=== PATIENT | female | born 1965 | race Caucasian/White ===

== ENCOUNTER 2017-10-20 16:05 | Inpatient (IN) | payer OTHER ==
[2017-10-20 17:03] LABS: ADD MAN DIFF? NO
[2017-10-20 17:04] LABS: WHITE BLOOD COUNT 4.6 10^3/ul (4.8-10.8)
[2017-10-20 17:04] LABS: BASOPHILS % 0.4 % (0.0-2.0); EOSINOPHILS # 0.1 10^3/ul (0.0-0.5); EOSINOPHILS % 2.8 % (0.0-7.0); LYMPHOCYTES # 1.2 10^3/ul (0.8-2.9); LYMPHOCYTES % 25.8 % (15.0-51.0); MEAN CORPUSCULAR HEMOGLOBIN 29.3 pg (29.0-33.0); MEAN CORPUSCULAR HGB CONC 34.3 g/dl (32.0-37.0); MEAN CORPUSCULAR VOLUME 85.6 fl (82.0-101.0); MEAN PLATELET VOLUME 10.6 fl (7.4-10.4); MONOCYTE # 0.5 10^3/ul (0.3-0.9); MONOCYTES % 10.8 % (0.0-11.0); NEUTROPHIL # 2.8 10^3/ul (1.6-7.5); PLATELET COUNT 183 10^3/UL (140-415); RED BLOOD COUNT 4.09 10^6/ul (4.20-5.40); RED CELL DISTRIBUTION WIDTH 12.7 % (11.5-14.5)
[2017-10-20 17:11] LABS: ALANINE AMINOTRANSFERASE 33 IU/L (13-69); ALBUMIN 4.2 g/dl (3.3-4.9); ALBUMIN/GLOBULIN RATIO 1.27; ALKALINE PHOSPHATASE 113 IU/L (42-121); ANION GAP 19 (8-16); ASPARTATE AMINO TRANSFERASE 25 IU/L (15-46); BILIRUBIN,INDIRECT 0.4 mg/dl (0-1.1); BILIRUBIN,TOTAL 0.4 mg/dl (0.2-1.3); BLOOD UREA NITROGEN 17 mg/dl (7-20); CALCIUM 9.6 mg/dl (8.4-10.2); CARBON DIOXIDE 25 mmol/L (21-31); CHLORIDE 107 mmol/L (97-110); CREATININE 0.59 mg/dl (0.44-1.00); GLUCOSE 128 mg/dl (70-220); LIPASE 101 U/L (23-300); POTASSIUM 4.2 mmol/L (3.5-5.1); SODIUM 147 mmol/L (135-144); TOTAL PROTEIN 7.5 g/dl (6.1-8.1)
[2017-10-20 17:22] LABS: TROPONIN-I < 0.010 ng/ml (0.000-0.120)
[2017-10-20] MEDS: SOD CHLORIDE 0.9% 500 ML IV (18:12)
[2017-10-20] MEDS ORDERED: HYDROCODONE/APAP (5/325) TAB PO (18:30)
[2017-10-20] MEDS ORDERED: ACETAMINOPHEN 325 MG TAB PO (18:30)
[2017-10-20] MEDS ORDERED: DOCUSATE SODIUM 100 MG CAP PO (18:30)
[2017-10-20] MEDS ORDERED: NA PHOSPHATE/BIPHOS 133 ML ENEMA PR (18:30)
[2017-10-20] MEDS ORDERED: morphine 2 MG INJ IV (18:30)
[2017-10-20] MEDS ORDERED: NACL 0.9% 3 ML SYG IV (18:30)
[2017-10-20] MEDS ORDERED: LORAZEPAM 2 MG INJ IV (18:30)
[2017-10-20] MEDS ORDERED: NITROGLYCERIN (SL) 0.4 MG TAB SL (18:30)
[2017-10-20] MEDS ORDERED: ALBUTEROL/IPRATROPIUM (NEB) 3 ML AMP HHN (18:30)
[2017-10-20] MEDS ORDERED: ONDANSETRON 4 MG INJ IV (18:30)
[2017-10-20] MEDS ORDERED: MAGNESIUM HYDROXIDE 30ML CUP PO (18:30)
[2017-10-20] MEDS ORDERED: GLUCAGON 1 MG INJ IM (19:00)
[2017-10-20] MEDS ORDERED: DEXTROSE 50% 50 ML SYRINGE IV ×2 (19:00)
[2017-10-20] MEDS ORDERED: GLUCOSE GEL 15 GRAM TUBE PO ×2 (19:00)
[2017-10-20] MEDS ORDERED: GLUCOSE GEL 15 GRAM TUBE BUCCAL (19:00)
[2017-10-20 19:38] LABS: FREE T4 (FREE THYROXINE) 0.88 ng/dl (0.64-1.79)
[2017-10-20] MEDS: SOD CHLORIDE 0.45% 1,000 ML IV (20:07)
[2017-10-20] MEDS: hydrALAzine 20 MG INJ IV (20:23)
[2017-10-20] MEDS: ASPIRIN 81 MG TAB PO (20:30)
[2017-10-20] MEDS: INSULIN ASPART [NOVOLOG] 3 ML PEN SC (21:00)
[2017-10-20] MEDS: LEVETIRACETAM 500 MG TAB PO (21:31)
[2017-10-20] MEDS: HEPARIN 5,000 UNIT/0.5 ML VIAL SC (22:06)
[2017-10-20] MEDS: INSULIN GLARGINE [LANtus] 3 ML PEN SC (22:08)
[2017-10-20 22:55] LABS: CREATINE KINASE < 20 IU/L (23-200)
[2017-10-20 23:03] LABS: CK-MB 0.25 ng/ml (0.0-2.4)
[2017-10-20 23:07] LABS: TROPONIN-I < 0.010 ng/ml (0.000-0.120)
[2017-10-21 05:44] LABS: ADD MAN DIFF? NO
[2017-10-21 05:48] LABS: WHITE BLOOD COUNT 3.6 10^3/ul (4.8-10.8)
[2017-10-21 05:48] LABS: BASOPHILS % 0.6 % (0.0-2.0); EOSINOPHILS # 0.1 10^3/ul (0.0-0.5); EOSINOPHILS % 2.8 % (0.0-7.0); HEMATOCRIT 33.1 % (37.0-47.0); LYMPHOCYTES % 27.1 % (15.0-51.0); MEAN CORPUSCULAR HEMOGLOBIN 28.1 pg (29.0-33.0); MEAN CORPUSCULAR HGB CONC 33.2 g/dl (32.0-37.0); MEAN CORPUSCULAR VOLUME 84.7 fl (82.0-101.0); MEAN PLATELET VOLUME 10.1 fl (7.4-10.4); MONOCYTE # 0.4 10^3/ul (0.3-0.9); MONOCYTES % 10.6 % (0.0-11.0); NEUTROPHIL # 2.1 10^3/ul (1.6-7.5); NEUTROPHILS % 58.6 % (39.0-77.0); PLATELET COUNT 172 10^3/UL (140-415); RED BLOOD COUNT 3.91 10^6/ul (4.20-5.40); RED CELL DISTRIBUTION WIDTH 12.8 % (11.5-14.5)
[2017-10-21 06:12] LABS: CHOLESTEROL 153 mg/dl (100-200)
[2017-10-21 06:12] LABS: CHOL/HDL RATIO 5.1 RATIO; HDL CHOLESTEROL 30 mg/dl (37-92); LDL CHOLESTEROL,CALCULATED 85 mg/dl; TRIGLYCERIDES 190 mg/dl (0-149)
[2017-10-21 06:13] LABS: CREATINE KINASE < 20 IU/L (23-200)
[2017-10-21 06:16] LABS: ANION GAP 7 (8-16); BLOOD UREA NITROGEN 12 mg/dl (7-20); CALCIUM 9.2 mg/dl (8.4-10.2); CARBON DIOXIDE 32 mmol/L (21-31); CHLORIDE 111 mmol/L (97-110); CREATININE 0.52 mg/dl (0.44-1.00); GLUCOSE 102 mg/dl (70-220); MAGNESIUM 1.6 mg/dl (1.7-2.5); POTASSIUM 3.8 mmol/L (3.5-5.1); SODIUM 146 mmol/L (135-144)
[2017-10-21 06:22] LABS: CK-MB 0.32 ng/ml (0.0-2.4)
[2017-10-21 06:24] LABS: TROPONIN-I < 0.010 ng/ml (0.000-0.120)
[2017-10-21] MEDS: PANTOPRAZOLE (EC) 40 MG TAB PO (07:43)
[2017-10-21] MEDS: LEVETIRACETAM 500 MG TAB PO (08:57)
[2017-10-21] MEDS: ASPIRIN (EC) 325 MG TAB PO (08:57)
[2017-10-21] MEDS: CLOPIDOGREL 75 MG TAB PO (08:57)
[2017-10-21] MEDS: HEPARIN 5,000 UNIT/0.5 ML VIAL SC (08:58)
[2017-10-21 09:20] LABS: ADD UMIC YES; UR ASCORBIC ACID NEGATIVE (NEGATIVE); UR BACTERIA FEW /HPF (NONE SEEN); UR BILIRUBIN (Dip) NEGATIVE (NEGATIVE); UR BLOOD (Dip) NEGATIVE (NEGATIVE); UR CLARITY CLEAR (CLEAR); UR COLOR STRAW (YELLOW); UR GLUCOSE (Dip) NEGATIVE (NEGATIVE); UR KETONES (Dip) NEGATIVE (NEGATIVE); UR LEUKOCYTE ESTERASE (Dip) 2+ Leu/ul (NEGATIVE); UR NITRITE (Dip) NEGATIVE (NEGATIVE); UR RBC 1 /HPF (0-5); UR SPECIFIC GRAVITY (Dip) 1.006 (1.003-1.030); UR SQUAMOUS EPITHELIAL CELL FEW /HPF (FEW); UR TOTAL PROTEIN (Dip) NEGATIVE (NEGATIVE); UR UROBILINOGEN (Dip) NEGATIVE (NEGATIVE); UR WBC 14 /HPF (0-5)
[2017-10-21] MEDS: SOD CHLORIDE 0.45% 1,000 ML IV (09:45)
[2017-10-21] MEDS: MAGNESIUM SULFATE 1 GM/D5W 100 ML IVPB (11:51)
== END 2017-10-21 11:39 | disposition home or self-care (01) | DRG 313 ==
LOC: TEL 18:34 → E/R 10-21 13:02
DX: R07.9 Chest pain, unspecified (principal); I69.954 Hemiplegia and hemiparesis following unspecified cerebrovascular disease affecting left non-dominant side; I10 Essential (primary) hypertension; E11.9 Type 2 diabetes mellitus without complications; Z79.4 Long term (current) use of insulin; Z79.02 Long term (current) use of antithrombotics/antiplatelets
CPT/HCPCS: 36415; 71045; 80048; 80053; 80061; 81001; 82550; 82553; 82962; 83036; 83690; 83735; 84100; 84439; 84443; 84484; 85025; 93005; 93306; 96372; 96374; 96375; 99285-25

== ENCOUNTER 2018-05-07 12:29 | Emergency (ER) | payer OTHER ==
[2018-05-07 13:32] LABS: ADD MAN DIFF? NO
[2018-05-07 13:34] LABS: BASOPHILS % 0.5 % (0.0-2.0); EOSINOPHILS # 0.1 10^3/ul (0.0-0.5); EOSINOPHILS % 2.1 % (0.0-7.0); HEMATOCRIT 38.4 % (37.0-47.0); LYMPHOCYTES # 1.2 10^3/ul (0.8-2.9); LYMPHOCYTES % 20.9 % (15.0-51.0); MEAN CORPUSCULAR HEMOGLOBIN 28.4 pg (29.0-33.0); MEAN CORPUSCULAR HGB CONC 33.9 g/dl (32.0-37.0); MEAN PLATELET VOLUME 9.2 fl (7.4-10.4); MONOCYTE # 0.3 10^3/ul (0.3-0.9); MONOCYTES % 6.1 % (0.0-11.0); NEUTROPHIL # 3.9 10^3/ul (1.6-7.5); PLATELET COUNT 211 10^3/UL (140-415); RED BLOOD COUNT 4.57 10^6/ul (4.20-5.40); RED CELL DISTRIBUTION WIDTH 12.2 % (11.5-14.5)
[2018-05-07 13:34] LABS: WHITE BLOOD COUNT 5.6 10^3/ul (4.8-10.8)
[2018-05-07 13:53] LABS: INR 0.92; PROTIME 12.4 Sec (11.9-14.9)
[2018-05-07 13:54] LABS: PARTIAL THROMBOPLASTIN TIME 32.6 Sec (23.0-35.0)
[2018-05-07 13:55] LABS: ANION GAP 11 (5-13); BLOOD UREA NITROGEN 16 mg/dl (7-20); CALCIUM 9.7 mg/dl (8.4-10.2); CARBON DIOXIDE 27 mmol/L (21-31); CHLORIDE 102 mmol/L (97-110); CREATININE 0.51 mg/dl (0.44-1.00); Estimated GFR > 60 mL/min (>60); GLUCOSE 165 mg/dl (70-220); POTASSIUM 4.4 mmol/L (3.5-5.1); SODIUM 140 mmol/L (135-144)
[2018-05-07 14:07] LABS: TROPONIN-I < 0.012 ng/ml (0.000-0.120)
[2018-05-07 14:31] LABS: ADD UMIC YES; UR ASCORBIC ACID NEGATIVE (NEGATIVE); UR BACTERIA FEW /HPF (NONE SEEN); UR BILIRUBIN (Dip) NEGATIVE (NEGATIVE); UR BLOOD (Dip) 2+ mg/dL (NEGATIVE); UR CLARITY CLOUDY (CLEAR); UR COLOR YELLOW (YELLOW); UR GLUCOSE (Dip) NEGATIVE (NEGATIVE); UR KETONES (Dip) NEGATIVE (NEGATIVE); UR LEUKOCYTE ESTERASE (Dip) 3+ Leu/ul (NEGATIVE); UR NITRITE (Dip) NEGATIVE (NEGATIVE); UR RBC 41 /HPF (0-5); UR SPECIFIC GRAVITY (Dip) 1.008 (1.003-1.030); UR SQUAMOUS EPITHELIAL CELL FEW /HPF (FEW); UR TOTAL PROTEIN (Dip) NEGATIVE (NEGATIVE); UR UROBILINOGEN (Dip) NEGATIVE (NEGATIVE); UR WBC > 182 /HPF (0-5)
[2018-05-07] MEDS: CEFTRIAXONE 1 GM/50 ML (PMX) 50 ML IVPB (15:55)
== END 2018-05-07 18:11 | disposition home or self-care (01) ==
LOC: E/R 12:29
DX: R53.1 Weakness (principal); E11.9 Type 2 diabetes mellitus without complications; I10 Essential (primary) hypertension; N30.00 Acute cystitis without hematuria; R94.02 Abnormal brain scan; Z86.73 Personal history of transient ischemic attack (TIA), and cerebral infarction without residual deficits; Z79.4 Long term (current) use of insulin; Z79.01 Long term (current) use of anticoagulants
CPT/HCPCS: 36415; 70450; 71045; 80048; 81001; 84484; 85025; 85610; 85730; 93005; 96374; 99285-25

== ENCOUNTER 2018-05-21 18:05 | Emergency (ER) | payer OTHER ==
[2018-05-21] MEDS ORDERED: morphine 4 MG/ML VIAL IV (21:41)
[2018-05-21 22:02] LABS: ADD MAN DIFF? NO
[2018-05-21 22:03] LABS: WHITE BLOOD COUNT 4.2 10^3/ul (4.8-10.8)
[2018-05-21 22:03] LABS: BASOPHILS % 0.5 % (0.0-2.0); EOSINOPHILS # 0.1 10^3/ul (0.0-0.5); EOSINOPHILS % 2.6 % (0.0-7.0); HEMOGLOBIN 13.3 g/dl (12.0-16.0); LYMPHOCYTES # 1.4 10^3/ul (0.8-2.9); LYMPHOCYTES % 33.7 % (15.0-51.0); MEAN CORPUSCULAR HEMOGLOBIN 28.5 pg (29.0-33.0); MEAN CORPUSCULAR HGB CONC 34.1 g/dl (32.0-37.0); MEAN CORPUSCULAR VOLUME 83.7 fl (82.0-101.0); MEAN PLATELET VOLUME 9.3 fl (7.4-10.4); MONOCYTE # 0.3 10^3/ul (0.3-0.9); MONOCYTES % 7.8 % (0.0-11.0); NEUTROPHIL # 2.4 10^3/ul (1.6-7.5); NEUTROPHILS % 55.4 % (39.0-77.0); PLATELET COUNT 216 10^3/UL (140-415); RED BLOOD COUNT 4.66 10^6/ul (4.20-5.40); RED CELL DISTRIBUTION WIDTH 12.4 % (11.5-14.5)
[2018-05-21] MEDS: KETOROLAC 30 MG INJ IV (22:03)
[2018-05-21] MEDS: ONDANSETRON 4 MG INJ IV (22:03)
[2018-05-21 22:21] LABS: ANION GAP 13 (5-13); BLOOD UREA NITROGEN 21 mg/dl (7-20); CARBON DIOXIDE 27 mmol/L (21-31); CHLORIDE 102 mmol/L (97-110); CREATININE 0.62 mg/dl (0.44-1.00); Estimated GFR > 60 mL/min (>60); GLUCOSE 130 mg/dl (70-220); POTASSIUM 4.6 mmol/L (3.5-5.1); SODIUM 142 mmol/L (135-144)
[2018-05-21 22:33] LABS: TROPONIN-I < 0.012 ng/ml (0.000-0.120)
== END 2018-05-21 23:49 | disposition home or self-care (01) ==
LOC: E/R 18:05
DX: R06.02 Shortness of breath (principal); R07.9 Chest pain, unspecified; I10 Essential (primary) hypertension; E11.9 Type 2 diabetes mellitus without complications; Z79.01 Long term (current) use of anticoagulants; Z79.4 Long term (current) use of insulin; Z86.73 Personal history of transient ischemic attack (TIA), and cerebral infarction without residual deficits
CPT/HCPCS: 36415; 71045; 80048; 84484; 85025; 93005; 96374; 96375; 99285-25

== ENCOUNTER 2018-09-29 00:32 | Inpatient (IN) | payer OTHER ==
[2018-09-29] MEDS: HYDROCODONE/APAP (5/325) TAB PO ×2 (01:11→16:02)
[2018-09-29 03:20] LABS: ADD MAN DIFF? NO
[2018-09-29 03:22] LABS: WHITE BLOOD COUNT 13.4 10^3/ul (4.8-10.8)
[2018-09-29 03:22] LABS: BASOPHILS % 0.3 % (0.0-2.0); EOSINOPHILS % 0.2 % (0.0-7.0); HEMATOCRIT 36.1 % (37.0-47.0); HEMOGLOBIN 12.1 g/dl (12.0-16.0); LYMPHOCYTES # 0.7 10^3/ul (0.8-2.9); LYMPHOCYTES % 5.2 % (15.0-51.0); MEAN CORPUSCULAR HEMOGLOBIN 28.5 pg (29.0-33.0); MEAN CORPUSCULAR HGB CONC 33.5 g/dl (32.0-37.0); MEAN CORPUSCULAR VOLUME 85.1 fl (82.0-101.0); MEAN PLATELET VOLUME 10.5 fl (7.4-10.4); MONOCYTE # 0.6 10^3/ul (0.3-0.9); MONOCYTES % 4.3 % (0.0-11.0); NEUTROPHILS % 89.4 % (39.0-77.0); PLATELET COUNT 180 10^3/UL (140-415); RED BLOOD COUNT 4.24 10^6/ul (4.20-5.40); RED CELL DISTRIBUTION WIDTH 12.6 % (11.5-14.5)
[2018-09-29 03:42] LABS: ALANINE AMINOTRANSFERASE 120 IU/L (13-69); ALBUMIN 4.3 g/dl (3.3-4.9); ALKALINE PHOSPHATASE 96 IU/L (42-121); ANION GAP 11 (5-13); ASPARTATE AMINO TRANSFERASE 85 IU/L (15-46); BILIRUBIN,INDIRECT 0.5 mg/dl (0-1.1); BILIRUBIN,TOTAL 0.5 mg/dl (0.2-1.3); BLOOD UREA NITROGEN 21 mg/dl (7-20); CALCIUM 9.7 mg/dl (8.4-10.2); CARBON DIOXIDE 25 mmol/L (21-31); CHLORIDE 107 mmol/L (97-110); CREATININE 0.62 mg/dl (0.44-1.00); Estimated GFR > 60 mL/min (>60); GLUCOSE 202 mg/dl (70-220); LIPASE 75 U/L (23-300); PARTIAL THROMBOPLASTIN TIME 30.6 Sec (23.0-35.0); POTASSIUM 4.5 mmol/L (3.5-5.1); PROTIME 12.3 Sec (11.9-14.9); SODIUM 143 mmol/L (135-144); TOTAL PROTEIN 7.6 g/dl (6.1-8.1)
[2018-09-29] MEDS: ONDANSETRON 4 MG INJ IV (03:45)
[2018-09-29] MEDS: morphine 4 MG/ML VIAL IV (03:45)
[2018-09-29] MEDS ORDERED: GLUCAGON 1 MG INJ IM (05:30)
[2018-09-29] MEDS ORDERED: ACETAMINOPHEN 325 MG TAB PO (05:30)
[2018-09-29] MEDS ORDERED: DEXTROSE 50% 50 ML SYRINGE IV ×2 (05:30)
[2018-09-29] MEDS ORDERED: GLUCOSE GEL 15 GRAM TUBE BUCCAL (05:30)
[2018-09-29] MEDS ORDERED: GLUCOSE GEL 15 GRAM TUBE PO ×2 (05:30)
[2018-09-29] MEDS: SOD CHLORIDE 0.45% 1,000 ML IV (06:10)
[2018-09-29] MEDS: PANTOPRAZOLE (EC) 40 MG TAB PO (06:54)
[2018-09-29] MEDS: AMLODIPINE 5 MG TAB PO ×2 (09:22→22:06)
[2018-09-29] MEDS: INSULIN ASPART [NOVOLOG] 3 ML PEN SC ×4 (09:30→21:00)
[2018-09-29 13:58] LABS: ADD UMIC NO; UR ASCORBIC ACID NEGATIVE (NEGATIVE); UR BILIRUBIN (Dip) NEGATIVE (NEGATIVE); UR BLOOD (Dip) NEGATIVE (NEGATIVE); UR CLARITY CLEAR (CLEAR); UR COLOR STRAW (YELLOW); UR GLUCOSE (Dip) NEGATIVE (NEGATIVE); UR KETONES (Dip) NEGATIVE (NEGATIVE); UR LEUKOCYTE ESTERASE (Dip) NEGATIVE Leu/ul (NEGATIVE); UR NITRITE (Dip) NEGATIVE (NEGATIVE); UR SPECIFIC GRAVITY (Dip) 1.015 (1.003-1.030); UR TOTAL PROTEIN (Dip) NEGATIVE (NEGATIVE); UR UROBILINOGEN (Dip) NEGATIVE (NEGATIVE)
[2018-09-29] MEDS ORDERED: FENTAnyl 50 MCG/ML VIAL (18:26)
[2018-09-29] MEDS ORDERED: ONDANSETRON 4 MG INJ IV (18:30)
[2018-09-29] MEDS ORDERED: DIPHENHYDRAMINE 50 MG INJ IV (18:30)
[2018-09-29] MEDS ORDERED: ALBUTEROL 0.083% (NEB) 2.5 MG/3 ML AMP HHN (18:30)
[2018-09-29] MEDS ORDERED: METOCLOPRAMIDE 10 MG INJ IV (18:30)
[2018-09-29] MEDS ORDERED: FENTAnyl 50 MCG/ML VIAL IV ×2 (18:30)
[2018-09-29] MEDS ORDERED: HYDROmorphONE 1 MG/5 ML IV SYRINGE IV ×2 (18:30)
[2018-09-29] MEDS ORDERED: INSULIN GLARGINE [LANtus] 3 ML PEN SC (21:00)
[2018-09-29] MEDS: INSULIN GLARGINE [LANTus] (100 UNITS/ML) SYG SC (21:58)
[2018-09-29] MEDS: morphine 2 MG INJ IV (22:01)
[2018-09-30 00:01] LABS: TROPONIN-I < 0.012 ng/ml (0.000-0.120)
[2018-09-30] MEDS ORDERED: ACCU-CHEK XX ×2 (02:00)
[2018-09-30] MEDS: DEXTROSE 5%-0.45% NACL 1,000 ML IV ×2 (02:21→14:51)
[2018-09-30] MEDS: INSULIN ASPART [NOVOLOG] 3 ML PEN SC ×4 (02:41→17:37)
[2018-09-30] MEDS: morphine 2 MG INJ IV ×3 (02:47→14:43)
[2018-09-30 05:56] LABS: ADD MAN DIFF? NO
[2018-09-30 06:00] LABS: BASOPHILS % 0.2 % (0.0-2.0); EOSINOPHILS # 0.1 10^3/ul (0.0-0.5); EOSINOPHILS % 1.2 % (0.0-7.0); HEMATOCRIT 34.6 % (37.0-47.0); HEMOGLOBIN 11.6 g/dl (12.0-16.0); LYMPHOCYTES # 0.8 10^3/ul (0.8-2.9); LYMPHOCYTES % 12.2 % (15.0-51.0); MEAN CORPUSCULAR HEMOGLOBIN 28.2 pg (29.0-33.0); MEAN CORPUSCULAR HGB CONC 33.5 g/dl (32.0-37.0); MEAN PLATELET VOLUME 10.4 fl (7.4-10.4); MONOCYTE # 0.5 10^3/ul (0.3-0.9); MONOCYTES % 7.1 % (0.0-11.0); NEUTROPHIL # 5.2 10^3/ul (1.6-7.5); NEUTROPHILS % 78.8 % (39.0-77.0); PLATELET COUNT 124 10^3/UL (140-415); RED BLOOD COUNT 4.12 10^6/ul (4.20-5.40); RED CELL DISTRIBUTION WIDTH 12.4 % (11.5-14.5)
[2018-09-30 06:00] LABS: WHITE BLOOD COUNT 6.6 10^3/ul (4.8-10.8)
[2018-09-30 06:33] LABS: TROPONIN-I < 0.012 ng/ml (0.000-0.120)
[2018-09-30 06:34] LABS: ANION GAP 6 (5-13); BLOOD UREA NITROGEN 14 mg/dl (7-20); CALCIUM 9.4 mg/dl (8.4-10.2); CARBON DIOXIDE 27 mmol/L (21-31); CHLORIDE 105 mmol/L (97-110); CREATININE 0.54 mg/dl (0.44-1.00); Estimated GFR > 60 mL/min (>60); GLUCOSE 180 mg/dl (70-220); POTASSIUM 4.1 mmol/L (3.5-5.1); SODIUM 138 mmol/L (135-144)
[2018-09-30] MEDS: PANTOPRAZOLE (EC) 40 MG TAB PO (06:38)
[2018-09-30] MEDS ORDERED: CEFAZOLIN 1 GM INJ (07:00)
[2018-09-30 07:22] LABS: HEMOGLOBIN A1C 6.4 % (0-5.9)
[2018-09-30] MEDS: AMLODIPINE 5 MG TAB PO ×2 (09:00→21:00)
[2018-09-30] MEDS ORDERED: ETOMIDATE 20 MG INJ (19:28)
[2018-09-30] MEDS ORDERED: ROCURONIUM 50 MG INJ (19:28)
[2018-09-30] MEDS ORDERED: HYDROmorphONE 2 MG/ML SYG (19:29)
[2018-09-30] MEDS ORDERED: LABETALOL HCL 20MG INJ IV (20:00)
[2018-09-30] MEDS ORDERED: MEPERIDINE 25 MG INJ IV (20:00)
[2018-09-30] MEDS ORDERED: HYDROmorphONE 1 MG/5 ML IV SYRINGE IV (20:00)
[2018-09-30] MEDS: POLYMYXIN/BACITRACIN 1L IRRIG (20:05)
[2018-09-30] MEDS ORDERED: DEXAMETHASONE 4 MG/ML 5 ML INJ (20:12)
[2018-09-30] MEDS ORDERED: ONDANSETRON 4 MG INJ (20:12)
[2018-09-30] MEDS ORDERED: SUGAMMADEX SODIUM 200 MG/2 ML VIAL IV (21:59)
[2018-09-30] MEDS: LACTATED RINGER'S 1,000 ML IV (22:19)
[2018-09-30] MEDS: HYDROmorphONE 1 MG/5 ML IV SYRINGE IV ×3 (22:22→22:34)
[2018-09-30] MEDS: ONDANSETRON 4 MG INJ IV (22:27)
[2018-09-30] MEDS: DOCUSATE SODIUM 100 MG CAP PO (22:30)
[2018-09-30] MEDS ORDERED: NALOXONE (0.4 MG/ML) INJ IV (22:30)
[2018-09-30] MEDS ORDERED: NA PHOSPHATE/BIPHOS 133 ML ENEMA PR (22:30)
[2018-09-30] MEDS ORDERED: CEFAZOLIN 2 GM/50 ML (PMX) 50 ML IVPB (22:30)
[2018-09-30] MEDS ORDERED: DIPHENHYDRAMINE 50 MG INJ IV (22:30)
[2018-09-30] MEDS: hydrALAzine 20 MG INJ IV (22:42)
[2018-10-01] MEDS: INSULIN ASPART [NOVOLOG] 3 ML PEN SC ×4 (00:25→17:55)
[2018-10-01] MEDS: INSULIN GLARGINE [LANTus] (100 UNITS/ML) SYG SC ×2 (00:36→20:35)
[2018-10-01] MEDS: CEFAZOLIN 2 GM/50 ML (PMX) 50 ML IVPB ×3 (04:18→20:16)
[2018-10-01] MEDS: ACETAMINOPHEN 500 MG TAB PO ×3 (05:41→20:23)
[2018-10-01] MEDS ORDERED: PANTOPRAZOLE (EC) 40 MG TAB PO (06:00)
[2018-10-01 08:13] LABS: ADD MAN DIFF? NO
[2018-10-01 08:15] LABS: ABNORMAL IP MESSAGE 1; BASOPHILS % 0.1 % (0.0-2.0); HEMATOCRIT 33.7 % (37.0-47.0); HEMOGLOBIN 11.4 g/dl (12.0-16.0); LYMPHOCYTES # 0.4 10^3/ul (0.8-2.9); MEAN CORPUSCULAR HEMOGLOBIN 28.2 pg (29.0-33.0); MEAN CORPUSCULAR HGB CONC 33.8 g/dl (32.0-37.0); MEAN CORPUSCULAR VOLUME 83.4 fl (82.0-101.0); MEAN PLATELET VOLUME 10.5 fl (7.4-10.4); MONOCYTE # 0.4 10^3/ul (0.3-0.9); NEUTROPHIL # 7.5 10^3/ul (1.6-7.5); NEUTROPHILS % 89.2 % (39.0-77.0); PLATELET COUNT 133 10^3/UL (140-415); RED BLOOD COUNT 4.04 10^6/ul (4.20-5.40); RED CELL DISTRIBUTION WIDTH 12.4 % (11.5-14.5)
[2018-10-01 08:15] LABS: WHITE BLOOD COUNT 8.4 10^3/ul (4.8-10.8)
[2018-10-01 08:21] LABS: POSITIVE DIFF @See below
[2018-10-01 08:36] LABS: INR 0.97
[2018-10-01 08:44] LABS: ANION GAP 9 (5-13); BLOOD UREA NITROGEN 12 mg/dl (7-20); CALCIUM 9.2 mg/dl (8.4-10.2); CARBON DIOXIDE 27 mmol/L (21-31); CHLORIDE 104 mmol/L (97-110); CREATININE 0.53 mg/dl (0.44-1.00); Estimated GFR > 60 mL/min (>60); GLUCOSE 157 mg/dl (70-220); POTASSIUM 4.6 mmol/L (3.5-5.1); SODIUM 140 mmol/L (135-144)
[2018-10-01 08:45] LABS: CHOL/HDL RATIO 4.1 RATIO; HDL CHOLESTEROL 48 mg/dl (37-92); LDL CHOLESTEROL,CALCULATED 128 mg/dl; TRIGLYCERIDES 119 mg/dl (0-149)
[2018-10-01 08:45] LABS: CHOLESTEROL 200 mg/dl (100-200)
[2018-10-01] MEDS: DOCUSATE SODIUM 100 MG CAP PO ×2 (08:53→20:17)
[2018-10-01] MEDS: PANTOPRAZOLE (EC) 40 MG TAB PO (08:54)
[2018-10-01] MEDS: AMLODIPINE 5 MG TAB PO ×2 (08:56→20:18)
[2018-10-01] MEDS: BACLOFEN 10 MG TAB PO ×2 (12:23→20:17)
[2018-10-01] MEDS: morphine 2 MG INJ IV (15:16)
[2018-10-01] MEDS: oxyCODONE 5 MG TAB PO (16:02)
[2018-10-01] MEDS: HYDROmorphONE 1 MG/ML SYG IV (17:45)
[2018-10-01] MEDS: GABAPENTIN 300 MG CAP PO (20:17)
[2018-10-02] MEDS: oxyCODONE 5 MG TAB PO ×4 (01:42→23:42)
[2018-10-02] MEDS: HYDROmorphONE 1 MG/ML SYG IV (04:21)
[2018-10-02] MEDS: PANTOPRAZOLE (EC) 40 MG TAB PO (05:52)
[2018-10-02] MEDS: ACETAMINOPHEN 500 MG TAB PO ×3 (05:52→21:14)
[2018-10-02] MEDS: INSULIN ASPART [NOVOLOG] 3 ML PEN SC ×5 (05:57→23:55)
[2018-10-02 06:24] LABS: ADD MAN DIFF? NO
[2018-10-02 06:29] LABS: WHITE BLOOD COUNT 6.3 10^3/ul (4.8-10.8)
[2018-10-02 06:29] LABS: BASOPHILS % 0.3 % (0.0-2.0); EOSINOPHILS # 0.1 10^3/ul (0.0-0.5); EOSINOPHILS % 1.3 % (0.0-7.0); HEMOGLOBIN 10.7 g/dl (12.0-16.0); LYMPHOCYTES # 0.7 10^3/ul (0.8-2.9); LYMPHOCYTES % 11.7 % (15.0-51.0); MEAN CORPUSCULAR HEMOGLOBIN 28.3 pg (29.0-33.0); MEAN CORPUSCULAR HGB CONC 33.4 g/dl (32.0-37.0); MEAN CORPUSCULAR VOLUME 84.7 fl (82.0-101.0); MEAN PLATELET VOLUME 10.1 fl (7.4-10.4); MONOCYTE # 0.5 10^3/ul (0.3-0.9); MONOCYTES % 8.4 % (0.0-11.0); NEUTROPHIL # 4.9 10^3/ul (1.6-7.5); NEUTROPHILS % 77.8 % (39.0-77.0); PLATELET COUNT 122 10^3/UL (140-415); RED BLOOD COUNT 3.78 10^6/ul (4.20-5.40); RED CELL DISTRIBUTION WIDTH 12.5 % (11.5-14.5)
[2018-10-02 06:45] LABS: INR 0.96; PROTIME 12.9 Sec (11.9-14.9)
[2018-10-02 06:53] LABS: ANION GAP 9 (5-13); BLOOD UREA NITROGEN 17 mg/dl (7-20); CALCIUM 8.8 mg/dl (8.4-10.2); CARBON DIOXIDE 30 mmol/L (21-31); CHLORIDE 100 mmol/L (97-110); Estimated GFR > 60 mL/min (>60); GLUCOSE 167 mg/dl (70-220); POTASSIUM 4.2 mmol/L (3.5-5.1); SODIUM 139 mmol/L (135-144)
[2018-10-02] MEDS: DOCUSATE SODIUM 100 MG CAP PO ×2 (08:30→21:22)
[2018-10-02] MEDS: BACLOFEN 10 MG TAB PO ×3 (08:31→21:13)
[2018-10-02] MEDS: AMLODIPINE 5 MG TAB PO ×2 (08:32→21:14)
[2018-10-02] MEDS: ENOXAPARIN 40 MG/0.4 ML SYG SC (08:35)
[2018-10-02] MEDS: ONDANSETRON 4 MG INJ IV (18:18)
[2018-10-02] MEDS: GABAPENTIN 300 MG CAP PO (21:13)
[2018-10-02] MEDS: INSULIN GLARGINE [LANTus] (100 UNITS/ML) SYG SC (21:21)
[2018-10-03] MEDS: HYDROmorphONE 1 MG/ML SYG IV ×2 (03:35→10:15)
[2018-10-03] MEDS: ACETAMINOPHEN 500 MG TAB PO ×3 (05:27→21:14)
[2018-10-03] MEDS: INSULIN ASPART [NOVOLOG] 3 ML PEN SC ×3 (05:36→18:09)
[2018-10-03 06:08] LABS: ADD MAN DIFF? NO
[2018-10-03 06:15] LABS: WHITE BLOOD COUNT 5.3 10^3/ul (4.8-10.8)
[2018-10-03 06:15] LABS: BASOPHILS % 0.6 % (0.0-2.0); EOSINOPHILS # 0.2 10^3/ul (0.0-0.5); EOSINOPHILS % 4.4 % (0.0-7.0); HEMOGLOBIN 9.7 g/dl (12.0-16.0); LYMPHOCYTES # 0.9 10^3/ul (0.8-2.9); MEAN CORPUSCULAR HEMOGLOBIN 28.6 pg (29.0-33.0); MEAN CORPUSCULAR HGB CONC 33.4 g/dl (32.0-37.0); MEAN CORPUSCULAR VOLUME 85.5 fl (82.0-101.0); MEAN PLATELET VOLUME 10.1 fl (7.4-10.4); MONOCYTE # 0.7 10^3/ul (0.3-0.9); MONOCYTES % 12.5 % (0.0-11.0); NEUTROPHIL # 3.4 10^3/ul (1.6-7.5); NEUTROPHILS % 65.1 % (39.0-77.0); PLATELET COUNT 143 10^3/UL (140-415); RED BLOOD COUNT 3.39 10^6/ul (4.20-5.40); RED CELL DISTRIBUTION WIDTH 12.5 % (11.5-14.5)
[2018-10-03 06:32] LABS: INR 0.99; PROTIME 13.2 Sec (11.9-14.9)
[2018-10-03 06:55] LABS: ANION GAP 7 (5-13); BLOOD UREA NITROGEN 20 mg/dl (7-20); CALCIUM 9.1 mg/dl (8.4-10.2); CARBON DIOXIDE 29 mmol/L (21-31); CHLORIDE 103 mmol/L (97-110); CREATININE 0.69 mg/dl (0.44-1.00); Estimated GFR > 60 mL/min (>60); GLUCOSE 145 mg/dl (70-220); POTASSIUM 4.1 mmol/L (3.5-5.1); SODIUM 139 mmol/L (135-144)
[2018-10-03] MEDS: PANTOPRAZOLE (EC) 40 MG TAB PO (08:45)
[2018-10-03] MEDS: AMLODIPINE 5 MG TAB PO ×2 (08:46→21:10)
[2018-10-03] MEDS: BACLOFEN 10 MG TAB PO ×3 (08:46→21:09)
[2018-10-03] MEDS: DOCUSATE SODIUM 100 MG CAP PO ×2 (08:46→21:09)
[2018-10-03] MEDS: SENNA/DOCUSATE NA (8.6MG/50MG) TAB PO (08:47)
[2018-10-03] MEDS: MAGNESIUM HYDROXIDE 30ML CUP PO (08:47)
[2018-10-03] MEDS: ENOXAPARIN 40 MG/0.4 ML SYG SC (08:49)
[2018-10-03] MEDS: oxyCODONE 5 MG TAB PO ×2 (09:14→21:07)
[2018-10-03] MEDS ORDERED: METOPROLOL 5 MG INJ IV (12:30)
[2018-10-03] MEDS: ONDANSETRON 4 MG INJ IV ×2 (15:23→21:08)
[2018-10-03] MEDS: BISACODYL 10 MG SUPP PR (15:24)
[2018-10-03] MEDS: GABAPENTIN 300 MG CAP PO (21:10)
[2018-10-03] MEDS: METOPROLOL 25 MG TAB PO (21:13)
[2018-10-03] MEDS: INSULIN GLARGINE [LANTus] (100 UNITS/ML) SYG SC (21:56)
[2018-10-04] MEDS: INSULIN ASPART [NOVOLOG] 3 ML PEN SC ×5 (00:11→21:42)
[2018-10-04] MEDS: MAGNESIUM HYDROXIDE 30ML CUP PO (00:31)
[2018-10-04] MEDS: oxyCODONE 5 MG TAB PO ×4 (04:49→20:38)
[2018-10-04] MEDS: ONDANSETRON 4 MG INJ IV ×3 (04:49→20:31)
[2018-10-04] MEDS: ACETAMINOPHEN 500 MG TAB PO ×3 (06:23→21:35)
[2018-10-04] MEDS: PANTOPRAZOLE (EC) 40 MG TAB PO (06:24)
[2018-10-04 06:31] LABS: ADD MAN DIFF? NO
[2018-10-04 06:39] LABS: WHITE BLOOD COUNT 4.2 10^3/ul (4.8-10.8)
[2018-10-04 06:39] LABS: BASOPHILS % 0.7 % (0.0-2.0); EOSINOPHILS # 0.2 10^3/ul (0.0-0.5); EOSINOPHILS % 5.7 % (0.0-7.0); HEMATOCRIT 28.7 % (37.0-47.0); HEMOGLOBIN 9.4 g/dl (12.0-16.0); LYMPHOCYTES # 0.9 10^3/ul (0.8-2.9); LYMPHOCYTES % 21.7 % (15.0-51.0); MEAN CORPUSCULAR HEMOGLOBIN 28.1 pg (29.0-33.0); MEAN CORPUSCULAR HGB CONC 32.8 g/dl (32.0-37.0); MEAN CORPUSCULAR VOLUME 85.9 fl (82.0-101.0); MEAN PLATELET VOLUME 9.9 fl (7.4-10.4); MONOCYTE # 0.5 10^3/ul (0.3-0.9); MONOCYTES % 12.1 % (0.0-11.0); NEUTROPHIL # 2.5 10^3/ul (1.6-7.5); NEUTROPHILS % 59.3 % (39.0-77.0); PLATELET COUNT 158 10^3/UL (140-415); RED BLOOD COUNT 3.34 10^6/ul (4.20-5.40); RED CELL DISTRIBUTION WIDTH 12.5 % (11.5-14.5)
[2018-10-04 06:50] LABS: INR 0.91; PROTIME 12.4 Sec (11.9-14.9)
[2018-10-04 07:10] LABS: ANION GAP 7 (5-13); BLOOD UREA NITROGEN 19 mg/dl (7-20); CALCIUM 9.1 mg/dl (8.4-10.2); CARBON DIOXIDE 31 mmol/L (21-31); CHLORIDE 100 mmol/L (97-110); CREATININE 0.72 mg/dl (0.44-1.00); Estimated GFR > 60 mL/min (>60); GLUCOSE 179 mg/dl (70-220); POTASSIUM 4.4 mmol/L (3.5-5.1); SODIUM 138 mmol/L (135-144)
[2018-10-04] MEDS: METOPROLOL 25 MG TAB PO ×2 (08:13→20:39)
[2018-10-04] MEDS: BACLOFEN 10 MG TAB PO ×3 (08:13→20:40)
[2018-10-04] MEDS: AMLODIPINE 5 MG TAB PO ×2 (08:14→20:39)
[2018-10-04] MEDS: ENOXAPARIN 40 MG/0.4 ML SYG SC (09:14)
[2018-10-04] MEDS: SENNA/DOCUSATE NA (8.6MG/50MG) TAB PO (14:17)
[2018-10-04] MEDS: NA PHOSPHATE/BIPHOS 133 ML ENEMA PR (16:21)
[2018-10-04] MEDS: MAGNESIUM CITRATE 300 ML BTL PO (18:13)
[2018-10-04] MEDS: GABAPENTIN 300 MG CAP PO (20:38)
[2018-10-04] MEDS: INSULIN GLARGINE [LANTus] (100 UNITS/ML) SYG SC (21:42)
[2018-10-05] MEDS: METOCLOPRAMIDE 10 MG INJ IV ×3 (00:26→18:49)
[2018-10-05] MEDS: SENNA/DOCUSATE NA (8.6MG/50MG) TAB PO ×2 (00:26→20:34)
[2018-10-05] MEDS: oxyCODONE 5 MG TAB PO ×3 (00:26→12:00)
[2018-10-05] MEDS: ACCU-CHEK XX (01:22)
[2018-10-05] MEDS: ACETAMINOPHEN 500 MG TAB PO ×3 (06:24→21:58)
[2018-10-05] MEDS: PANTOPRAZOLE (EC) 40 MG TAB PO (06:24)
[2018-10-05 07:19] LABS: ADD MAN DIFF? NO
[2018-10-05 07:23] LABS: BASOPHILS % 0.7 % (0.0-2.0); EOSINOPHILS # 0.2 10^3/ul (0.0-0.5); EOSINOPHILS % 5.4 % (0.0-7.0); HEMATOCRIT 29.1 % (37.0-47.0); HEMOGLOBIN 9.5 g/dl (12.0-16.0); LYMPHOCYTES # 1.3 10^3/ul (0.8-2.9); LYMPHOCYTES % 29.5 % (15.0-51.0); MEAN CORPUSCULAR HGB CONC 32.6 g/dl (32.0-37.0); MEAN CORPUSCULAR VOLUME 85.8 fl (82.0-101.0); MEAN PLATELET VOLUME 9.3 fl (7.4-10.4); MONOCYTE # 0.5 10^3/ul (0.3-0.9); MONOCYTES % 11.3 % (0.0-11.0); NEUTROPHIL # 2.3 10^3/ul (1.6-7.5); NEUTROPHILS % 52.2 % (39.0-77.0); PLATELET COUNT 187 10^3/UL (140-415); RED BLOOD COUNT 3.39 10^6/ul (4.20-5.40); RED CELL DISTRIBUTION WIDTH 12.6 % (11.5-14.5)
[2018-10-05 07:23] LABS: WHITE BLOOD COUNT 4.4 10^3/ul (4.8-10.8)
[2018-10-05 07:41] LABS: INR 0.93; PROTIME 12.6 Sec (11.9-14.9)
[2018-10-05 07:50] LABS: ANION GAP 6 (5-13); BLOOD UREA NITROGEN 14 mg/dl (7-20); CARBON DIOXIDE 31 mmol/L (21-31); CHLORIDE 102 mmol/L (97-110); Estimated GFR > 60 mL/min (>60); GLUCOSE 191 mg/dl (70-220); POTASSIUM 4.2 mmol/L (3.5-5.1); SODIUM 139 mmol/L (135-144)
[2018-10-05] MEDS: BACLOFEN 10 MG TAB PO ×3 (09:04→20:36)
[2018-10-05] MEDS: AMLODIPINE 5 MG TAB PO ×2 (09:04→20:35)
[2018-10-05] MEDS: METOPROLOL 25 MG TAB PO ×2 (09:05→20:35)
[2018-10-05] MEDS: INSULIN ASPART [NOVOLOG] 3 ML PEN SC ×4 (09:32→20:52)
[2018-10-05] MEDS: ENOXAPARIN 40 MG/0.4 ML SYG SC (09:33)
[2018-10-05] MEDS: METHYLNALTREXONE 12 MG/0.6 ML VIAL SC (18:48)
[2018-10-05] MEDS: MAGNESIUM CITRATE 300 ML BTL PO (18:48)
[2018-10-05] MEDS: GABAPENTIN 300 MG CAP PO (20:34)
[2018-10-05] MEDS: INSULIN GLARGINE [LANTus] (100 UNITS/ML) SYG SC (20:51)
[2018-10-06] MEDS: ACCU-CHEK XX (02:00)
[2018-10-06] MEDS: ACETAMINOPHEN 500 MG TAB PO ×3 (05:37→21:47)
[2018-10-06] MEDS: METOCLOPRAMIDE 10 MG INJ IV ×5 (05:38→23:49)
[2018-10-06 06:44] LABS: ADD MAN DIFF? NO
[2018-10-06 06:46] LABS: WHITE BLOOD COUNT 4.9 10^3/ul (4.8-10.8)
[2018-10-06 06:46] LABS: BASOPHILS % 0.6 % (0.0-2.0); EOSINOPHILS # 0.2 10^3/ul (0.0-0.5); EOSINOPHILS % 3.7 % (0.0-7.0); HEMATOCRIT 30.8 % (37.0-47.0); HEMOGLOBIN 10.1 g/dl (12.0-16.0); LYMPHOCYTES # 1.2 10^3/ul (0.8-2.9); LYMPHOCYTES % 24.5 % (15.0-51.0); MEAN CORPUSCULAR HEMOGLOBIN 28.3 pg (29.0-33.0); MEAN CORPUSCULAR HGB CONC 32.8 g/dl (32.0-37.0); MEAN CORPUSCULAR VOLUME 86.3 fl (82.0-101.0); MONOCYTE # 0.6 10^3/ul (0.3-0.9); MONOCYTES % 11.6 % (0.0-11.0); NEUTROPHIL # 2.8 10^3/ul (1.6-7.5); NUCLEATED RED BLOOD CELLS% 0.4 /100WBC (0.0-0.0); PLATELET COUNT 241 10^3/UL (140-415); RED BLOOD COUNT 3.57 10^6/ul (4.20-5.40); RED CELL DISTRIBUTION WIDTH 12.5 % (11.5-14.5)
[2018-10-06 07:05] LABS: INR 0.89; PROTIME 12.1 Sec (11.9-14.9); PT RATIO 0.9
[2018-10-06 07:15] LABS: ALANINE AMINOTRANSFERASE 120 IU/L (13-69); ALBUMIN 3.6 g/dl (3.3-4.9); ALKALINE PHOSPHATASE 262 IU/L (42-121); ANION GAP 6 (5-13); ASPARTATE AMINO TRANSFERASE 145 IU/L (15-46); BILIRUBIN,INDIRECT 0.8 mg/dl (0-1.1); BILIRUBIN,TOTAL 0.8 mg/dl (0.2-1.3); BLOOD UREA NITROGEN 15 mg/dl (7-20); CALCIUM 9.3 mg/dl (8.4-10.2); CARBON DIOXIDE 33 mmol/L (21-31); CHLORIDE 100 mmol/L (97-110); CREATININE 0.59 mg/dl (0.44-1.00); Estimated GFR > 60 mL/min (>60); GLUCOSE 149 mg/dl (70-220); POTASSIUM 4.3 mmol/L (3.5-5.1); SODIUM 139 mmol/L (135-144); TOTAL PROTEIN 6.6 g/dl (6.1-8.1)
[2018-10-06] MEDS: INSULIN ASPART [NOVOLOG] 3 ML PEN SC ×4 (07:25→22:05)
[2018-10-06] MEDS: PANTOPRAZOLE (EC) 40 MG TAB PO (08:19)
[2018-10-06] MEDS: METOPROLOL 25 MG TAB PO ×2 (08:21→21:47)
[2018-10-06] MEDS: BACLOFEN 10 MG TAB PO ×3 (08:21→21:50)
[2018-10-06] MEDS: AMLODIPINE 5 MG TAB PO ×2 (08:22→21:46)
[2018-10-06] MEDS: SENNA/DOCUSATE NA (8.6MG/50MG) TAB PO ×2 (08:22→21:46)
[2018-10-06] MEDS: ENOXAPARIN 40 MG/0.4 ML SYG SC (08:33)
[2018-10-06] MEDS: oxyCODONE 5 MG TAB PO (10:53)
[2018-10-06] MEDS: ONDANSETRON 4 MG INJ IV (14:18)
[2018-10-06] MEDS: CLOPIDOGREL 75 MG TAB PO (14:40)
[2018-10-06] MEDS: GABAPENTIN 300 MG CAP PO (21:46)
[2018-10-06] MEDS: INSULIN GLARGINE [LANTus] (100 UNITS/ML) SYG SC (21:50)
[2018-10-07] MEDS: oxyCODONE 5 MG TAB PO ×2 (00:47→17:11)
[2018-10-07] MEDS: ACCU-CHEK XX (01:53)
[2018-10-07 05:34] LABS: ADD MAN DIFF? NO
[2018-10-07 05:38] LABS: WHITE BLOOD COUNT 4.6 10^3/ul (4.8-10.8)
[2018-10-07 05:38] LABS: BASOPHILS % 0.4 % (0.0-2.0); EOSINOPHILS # 0.3 10^3/ul (0.0-0.5); EOSINOPHILS % 5.8 % (0.0-7.0); HEMATOCRIT 30.1 % (37.0-47.0); HEMOGLOBIN 9.6 g/dl (12.0-16.0); LYMPHOCYTES # 1.4 10^3/ul (0.8-2.9); LYMPHOCYTES % 29.2 % (15.0-51.0); MEAN CORPUSCULAR HEMOGLOBIN 27.7 pg (29.0-33.0); MEAN CORPUSCULAR HGB CONC 31.9 g/dl (32.0-37.0); MEAN CORPUSCULAR VOLUME 86.7 fl (82.0-101.0); MONOCYTE # 0.5 10^3/ul (0.3-0.9); MONOCYTES % 10.4 % (0.0-11.0); NEUTROPHIL # 2.3 10^3/ul (1.6-7.5); NEUTROPHILS % 50.3 % (39.0-77.0); NUCLEATED RED BLOOD CELLS% 0.6 /100WBC (0.0-0.0); PLATELET COUNT 242 10^3/UL (140-415); RED BLOOD COUNT 3.47 10^6/ul (4.20-5.40); RED CELL DISTRIBUTION WIDTH 12.7 % (11.5-14.5)
[2018-10-07 05:58] LABS: INR 0.85; PROTIME 11.7 Sec (11.9-14.9); PT RATIO 0.9
[2018-10-07 06:04] LABS: ALANINE AMINOTRANSFERASE 155 IU/L (13-69); ALBUMIN 3.3 g/dl (3.3-4.9); ALBUMIN/GLOBULIN RATIO 1.06; ALKALINE PHOSPHATASE 230 IU/L (42-121); ANION GAP 6 (5-13); ASPARTATE AMINO TRANSFERASE 144 IU/L (15-46); BILIRUBIN,INDIRECT 0.7 mg/dl (0-1.1); BILIRUBIN,TOTAL 0.7 mg/dl (0.2-1.3); BLOOD UREA NITROGEN 13 mg/dl (7-20); CALCIUM 8.9 mg/dl (8.4-10.2); CARBON DIOXIDE 31 mmol/L (21-31); CHLORIDE 103 mmol/L (97-110); CREATININE 0.56 mg/dl (0.44-1.00); Estimated GFR > 60 mL/min (>60); GLUCOSE 115 mg/dl (70-220); POTASSIUM 4.3 mmol/L (3.5-5.1); SODIUM 140 mmol/L (135-144); TOTAL PROTEIN 6.4 g/dl (6.1-8.1)
[2018-10-07] MEDS: ACETAMINOPHEN 500 MG TAB PO ×3 (06:20→21:13)
[2018-10-07] MEDS: PANTOPRAZOLE (EC) 40 MG TAB PO (06:21)
[2018-10-07] MEDS: METOCLOPRAMIDE 10 MG INJ IV ×3 (06:21→17:10)
[2018-10-07] MEDS: METOPROLOL 25 MG TAB PO ×2 (08:32→21:15)
[2018-10-07] MEDS: CLOPIDOGREL 75 MG TAB PO (08:32)
[2018-10-07] MEDS: BACLOFEN 10 MG TAB PO ×3 (08:33→21:14)
[2018-10-07] MEDS: AMLODIPINE 5 MG TAB PO ×2 (08:34→21:13)
[2018-10-07] MEDS: SENNA/DOCUSATE NA (8.6MG/50MG) TAB PO ×2 (08:34→21:13)
[2018-10-07] MEDS: INSULIN ASPART [NOVOLOG] 3 ML PEN SC ×4 (08:37→21:21)
[2018-10-07] MEDS: ENOXAPARIN 40 MG/0.4 ML SYG SC (08:38)
[2018-10-07] MEDS: METHYLNALTREXONE 12 MG/0.6 ML VIAL SC (17:11)
[2018-10-07] MEDS: GABAPENTIN 300 MG CAP PO (21:14)
[2018-10-07] MEDS: INSULIN GLARGINE [LANTus] (100 UNITS/ML) SYG SC (21:19)
[2018-10-08] MEDS: METOCLOPRAMIDE 10 MG INJ IV ×5 (00:47→23:55)
[2018-10-08] MEDS: ACCU-CHEK XX (02:00)
[2018-10-08] MEDS: PANTOPRAZOLE (EC) 40 MG TAB PO (05:58)
[2018-10-08] MEDS: ACETAMINOPHEN 500 MG TAB PO ×3 (05:59→22:46)
[2018-10-08] MEDS: INSULIN ASPART [NOVOLOG] 3 ML PEN SC ×4 (07:00→21:00)
[2018-10-08 07:06] LABS: ALANINE AMINOTRANSFERASE 237 IU/L (13-69); ALBUMIN 3.4 g/dl (3.3-4.9); ALBUMIN/GLOBULIN RATIO 1.17; ALKALINE PHOSPHATASE 239 IU/L (42-121); ANION GAP 6 (5-13); ASPARTATE AMINO TRANSFERASE 209 IU/L (15-46); BILIRUBIN,INDIRECT 0.7 mg/dl (0-1.1); BILIRUBIN,TOTAL 0.7 mg/dl (0.2-1.3); BLOOD UREA NITROGEN 12 mg/dl (7-20); CARBON DIOXIDE 29 mmol/L (21-31); CHLORIDE 102 mmol/L (97-110); CREATININE 0.66 mg/dl (0.44-1.00); Estimated GFR > 60 mL/min (>60); GLUCOSE 139 mg/dl (70-220); POTASSIUM 4.4 mmol/L (3.5-5.1); SODIUM 137 mmol/L (135-144); TOTAL PROTEIN 6.3 g/dl (6.1-8.1)
[2018-10-08] MEDS: BACLOFEN 10 MG TAB PO ×3 (10:17→21:01)
[2018-10-08] MEDS: SENNA/DOCUSATE NA (8.6MG/50MG) TAB PO ×2 (10:17→21:02)
[2018-10-08] MEDS: METOPROLOL 25 MG TAB PO ×2 (10:17→22:46)
[2018-10-08] MEDS: CLOPIDOGREL 75 MG TAB PO (10:18)
[2018-10-08] MEDS: AMLODIPINE 5 MG TAB PO ×2 (10:18→21:03)
[2018-10-08] MEDS: ENOXAPARIN 40 MG/0.4 ML SYG SC (10:20)
[2018-10-08] MEDS: GABAPENTIN 300 MG CAP PO (21:01)
[2018-10-08] MEDS: INSULIN GLARGINE [LANTus] (100 UNITS/ML) SYG SC (21:06)
[2018-10-09] MEDS: ACCU-CHEK XX (02:00)
[2018-10-09 05:20] LABS: ADD MAN DIFF? NO
[2018-10-09 05:39] LABS: WHITE BLOOD COUNT 5.1 10^3/ul (4.8-10.8)
[2018-10-09 05:39] LABS: BASOPHILS % 0.6 % (0.0-2.0); EOSINOPHILS # 0.2 10^3/ul (0.0-0.5); EOSINOPHILS % 4.5 % (0.0-7.0); HEMATOCRIT 32.1 % (37.0-47.0); HEMOGLOBIN 10.4 g/dl (12.0-16.0); LYMPHOCYTES # 1.4 10^3/ul (0.8-2.9); LYMPHOCYTES % 27.1 % (15.0-51.0); MEAN CORPUSCULAR HEMOGLOBIN 28.3 pg (29.0-33.0); MEAN CORPUSCULAR HGB CONC 32.4 g/dl (32.0-37.0); MEAN CORPUSCULAR VOLUME 87.2 fl (82.0-101.0); MEAN PLATELET VOLUME 8.8 fl (7.4-10.4); MONOCYTE # 0.5 10^3/ul (0.3-0.9); MONOCYTES % 9.9 % (0.0-11.0); NEUTROPHIL # 2.8 10^3/ul (1.6-7.5); NEUTROPHILS % 54.9 % (39.0-77.0); PLATELET COUNT 268 10^3/UL (140-415); RED BLOOD COUNT 3.68 10^6/ul (4.20-5.40); RED CELL DISTRIBUTION WIDTH 13.3 % (11.5-14.5)
[2018-10-09 06:04] LABS: ALANINE AMINOTRANSFERASE 294 IU/L (13-69); ALBUMIN 3.5 g/dl (3.3-4.9); ALBUMIN/GLOBULIN RATIO 1.09; ALKALINE PHOSPHATASE 280 IU/L (42-121); ANION GAP 7 (5-13); ASPARTATE AMINO TRANSFERASE 212 IU/L (15-46); BILIRUBIN,INDIRECT 0.7 mg/dl (0-1.1); BILIRUBIN,TOTAL 0.7 mg/dl (0.2-1.3); BLOOD UREA NITROGEN 13 mg/dl (7-20); CALCIUM 9.1 mg/dl (8.4-10.2); CARBON DIOXIDE 27 mmol/L (21-31); CHLORIDE 106 mmol/L (97-110); Estimated GFR > 60 mL/min (>60); GLUCOSE 126 mg/dl (70-220); POTASSIUM 4.3 mmol/L (3.5-5.1); SODIUM 140 mmol/L (135-144); TOTAL PROTEIN 6.7 g/dl (6.1-8.1)
[2018-10-09] MEDS: PANTOPRAZOLE (EC) 40 MG TAB PO (06:06)
[2018-10-09] MEDS: METOCLOPRAMIDE 10 MG INJ IV ×3 (06:06→17:39)
[2018-10-09] MEDS: ACETAMINOPHEN 500 MG TAB PO ×3 (06:06→21:48)
[2018-10-09] MEDS: INSULIN ASPART [NOVOLOG] 3 ML PEN SC ×4 (07:00→21:40)
[2018-10-09] MEDS: SENNA/DOCUSATE NA (8.6MG/50MG) TAB PO ×2 (08:44→21:32)
[2018-10-09] MEDS: CLOPIDOGREL 75 MG TAB PO (08:44)
[2018-10-09] MEDS: AMLODIPINE 5 MG TAB PO ×2 (08:44→21:34)
[2018-10-09] MEDS: METOPROLOL 25 MG TAB PO ×2 (08:45→21:35)
[2018-10-09] MEDS: BACLOFEN 10 MG TAB PO ×3 (08:45→21:33)
[2018-10-09] MEDS: ENOXAPARIN 40 MG/0.4 ML SYG SC (08:54)
[2018-10-09] MEDS: METHYLNALTREXONE 12 MG/0.6 ML VIAL SC (17:40)
[2018-10-09] MEDS: GABAPENTIN 300 MG CAP PO (21:32)
[2018-10-09] MEDS: INSULIN GLARGINE [LANTus] (100 UNITS/ML) SYG SC (21:40)
[2018-10-10] MEDS: METOCLOPRAMIDE 10 MG INJ IV ×4 (00:43→17:17)
[2018-10-10] MEDS: NACL 0.9% 3 ML SYG IV (00:43)
[2018-10-10] MEDS: ACCU-CHEK XX (02:00)
[2018-10-10 05:15] LABS: ADD MAN DIFF? NO; HAAIG REFLEX REFLEX FILED
[2018-10-10 05:26] LABS: BASOPHILS % 0.8 % (0.0-2.0); EOSINOPHILS # 0.2 10^3/ul (0.0-0.5); EOSINOPHILS % 4.7 % (0.0-7.0); HEMATOCRIT 31.9 % (37.0-47.0); HEMOGLOBIN 10.1 g/dl (12.0-16.0); LYMPHOCYTES # 1.3 10^3/ul (0.8-2.9); MEAN CORPUSCULAR HEMOGLOBIN 28.1 pg (29.0-33.0); MEAN CORPUSCULAR HGB CONC 31.7 g/dl (32.0-37.0); MEAN CORPUSCULAR VOLUME 88.9 fl (82.0-101.0); MEAN PLATELET VOLUME 8.7 fl (7.4-10.4); MONOCYTE # 0.4 10^3/ul (0.3-0.9); MONOCYTES % 9.1 % (0.0-11.0); NEUTROPHIL # 2.6 10^3/ul (1.6-7.5); NEUTROPHILS % 54.2 % (39.0-77.0); PLATELET COUNT 263 10^3/UL (140-415); RED BLOOD COUNT 3.59 10^6/ul (4.20-5.40); RED CELL DISTRIBUTION WIDTH 13.2 % (11.5-14.5)
[2018-10-10 05:26] LABS: WHITE BLOOD COUNT 4.7 10^3/ul (4.8-10.8)
[2018-10-10] MEDS: ACETAMINOPHEN 500 MG TAB PO ×3 (05:50→21:19)
[2018-10-10] MEDS: PANTOPRAZOLE (EC) 40 MG TAB PO (05:51)
[2018-10-10 06:00] LABS: ALANINE AMINOTRANSFERASE 247 IU/L (13-69); ALBUMIN 3.4 g/dl (3.3-4.9); ALBUMIN/GLOBULIN RATIO 1.21; ALKALINE PHOSPHATASE 233 IU/L (42-121); ANION GAP 6 (5-13); ASPARTATE AMINO TRANSFERASE 124 IU/L (15-46); BILIRUBIN,INDIRECT 0.5 mg/dl (0-1.1); BILIRUBIN,TOTAL 0.5 mg/dl (0.2-1.3); BLOOD UREA NITROGEN 16 mg/dl (7-20); CALCIUM 9.2 mg/dl (8.4-10.2); CARBON DIOXIDE 26 mmol/L (21-31); CHLORIDE 107 mmol/L (97-110); CREATININE 0.63 mg/dl (0.44-1.00); Estimated GFR > 60 mL/min (>60); GLUCOSE 133 mg/dl (70-220); POTASSIUM 4.2 mmol/L (3.5-5.1); SODIUM 139 mmol/L (135-144); TOTAL PROTEIN 6.2 g/dl (6.1-8.1)
[2018-10-10 06:22] LABS: HEPATITIS B SURFACE ANTIGEN NEGATIVE (NEGATIVE)
[2018-10-10 06:40] LABS: HEPATITIS B CORE ANTIBODY NEGATIVE (NEGATIVE); HEPATITIS C VIRAL ANTIBODY NEGATIVE (NEGATIVE)
[2018-10-10] MEDS: INSULIN ASPART [NOVOLOG] 3 ML PEN SC ×4 (08:08→21:00)
[2018-10-10] MEDS: SENNA/DOCUSATE NA (8.6MG/50MG) TAB PO ×2 (08:41→21:07)
[2018-10-10] MEDS: BACLOFEN 10 MG TAB PO ×3 (08:42→21:09)
[2018-10-10] MEDS: AMLODIPINE 5 MG TAB PO ×2 (08:42→21:09)
[2018-10-10] MEDS: CLOPIDOGREL 75 MG TAB PO (08:42)
[2018-10-10] MEDS: METOPROLOL 25 MG TAB PO ×2 (08:43→21:10)
[2018-10-10] MEDS: ENOXAPARIN 40 MG/0.4 ML SYG SC (08:45)
[2018-10-10] MEDS: IBUPROFEN 600 MG TAB PO (17:11)
[2018-10-10] MEDS: GABAPENTIN 300 MG CAP PO (21:10)
[2018-10-10] MEDS: INSULIN GLARGINE [LANTus] (100 UNITS/ML) SYG SC (21:16)
[2018-10-11] MEDS: METOCLOPRAMIDE 10 MG INJ IV ×4 (00:17→17:47)
[2018-10-11] MEDS: ACCU-CHEK XX (02:00)
[2018-10-11] MEDS: ACETAMINOPHEN 500 MG TAB PO ×2 (06:02→17:46)
[2018-10-11] MEDS: PANTOPRAZOLE (EC) 40 MG TAB PO (06:03)
[2018-10-11] MEDS: NACL 0.9% 3 ML SYG IV (06:06)
[2018-10-11] MEDS: INSULIN ASPART [NOVOLOG] 3 ML PEN SC ×3 (07:00→17:30)
[2018-10-11] MEDS: SENNA/DOCUSATE NA (8.6MG/50MG) TAB PO (08:15)
[2018-10-11] MEDS: CLOPIDOGREL 75 MG TAB PO (08:15)
[2018-10-11] MEDS: METOPROLOL 25 MG TAB PO (08:17)
[2018-10-11] MEDS: BACLOFEN 10 MG TAB PO ×2 (08:18→12:54)
[2018-10-11] MEDS: AMLODIPINE 5 MG TAB PO (08:24)
[2018-10-11] MEDS: ENOXAPARIN 40 MG/0.4 ML SYG SC (08:27)
[2018-10-11 11:38] LABS: ALANINE AMINOTRANSFERASE 202 IU/L (13-69); ALBUMIN 3.6 g/dl (3.3-4.9); ALKALINE PHOSPHATASE 248 IU/L (42-121); ASPARTATE AMINO TRANSFERASE 89 IU/L (15-46); BILIRUBIN,INDIRECT 0.6 mg/dl (0-1.1); BILIRUBIN,TOTAL 0.6 mg/dl (0.2-1.3); TOTAL PROTEIN 6.3 g/dl (6.1-8.1)
[2018-10-11] MEDS: METHYLNALTREXONE 12 MG/0.6 ML VIAL SC (17:47)
== END 2018-10-11 18:36 | disposition home health service (06) | DRG 481 ==
LOC: FTE 00:32 → 2NE 10-06 14:21 → TEL 09-30 23:08 → 2NE 03:31
PROC: 0QS706Z Reposition Left Upper Femur with Intramedullary Internal Fixation Device, Open Approach (ICD-10-PCS; principal; 2018-09-29 18:29)
DX: S72.142A Displaced intertrochanteric fracture of left femur, initial encounter for closed fracture (principal); K56.7 Ileus, unspecified; I69.354 Hemiplegia and hemiparesis following cerebral infarction affecting left non-dominant side; D64.9 Anemia, unspecified; E11.9 Type 2 diabetes mellitus without complications; E78.5 Hyperlipidemia, unspecified; G89.18 Other acute postprocedural pain; I10 Essential (primary) hypertension; K59.00 Constipation, unspecified; K80.20 Calculus of gallbladder without cholecystitis without obstruction; M24.552 Contracture, left hip; M24.562 Contracture, left knee; M19.90 Unspecified osteoarthritis, unspecified site; R11.2 Nausea with vomiting, unspecified; R00.0 Tachycardia, unspecified; W05.0XXA Fall from non-moving wheelchair, initial encounter; Y92.009 Unspecified place in unspecified non-institutional (private) residence as the place of occurrence of the external cause; Z79.02 Long term (current) use of antithrombotics/antiplatelets; Z79.4 Long term (current) use of insulin
CPT/HCPCS: 36415; 71045; 72170; 73510; 73550; 73562; 74018; 74176; 76700; 80048; 80053; 80061; 80076; 81003; 82962; 83036; 83690; 84484; 84703; 85025; 85610; 85730; 86704; 86709; 86803; 86850; 86900; 86901; 87340; 93005; 93306; 97110; 97116; 97163; 97165; 97530; 97535; 99285-25